=== PATIENT | female | born 1995 | race African-American/Black ===

== ENCOUNTER 2020-06-02 01:01 | Emergency (ER) | payer MEDICAID ==
[~2020-06-02] VITALS: Ht 165.1 cm; Wt 69.0 kg
[2020-06-02 01:03] VITALS: BP 136/72
[2020-06-02] MEDS ORDERED: ACETAMINOPHEN 325MG TABLET PO ONE (01:30)
[2020-06-02] MEDS ORDERED: LIDOCAINE HCL/PF 1% 10 MG/ML 5ML VIAL IJ ONE (01:30)
[2020-06-02] MEDS ORDERED: BACITRACIN ZINC OINT UDPKT TOP ONE (01:30)
[2020-06-02] MEDS ORDERED: TETANUS, DIPHTHERIA, PERTUSSIS VAC/PF 0.5ML (>7YR OLD) IM ONE (01:30)
== END 2020-06-02 04:05 | disposition home or self-care (01) ==
LOC: ER 01:01
DX: O26.892 Other specified pregnancy related conditions, second trimester (principal); S01.112A Laceration without foreign body of left eyelid and periocular area, initial encounter; Z3A.21 21 weeks gestation of pregnancy; Y04.0XXA Assault by unarmed brawl or fight, initial encounter; Y93.89 Activity, other specified; Y92.89 Other specified places as the place of occurrence of the external cause; Y99.8 Other external cause status
CPT/HCPCS: 12013; 76815; 81025; 90471; 90715; 99284; J3490

== ENCOUNTER 2020-08-18 13:15 | Observation (INO) | payer BC, MEDICAID | END 2020-08-18 15:40 | disposition home or self-care (01) | LOC: 8 EST LDRP 13:15 | PROVIDERS: ADMIT Obstetrics & Gynecology; ATTEND Obstetrics & Gynecology | DX: O62.9 Abnormality of forces of labor, unspecified (principal); Z3A.34 34 weeks gestation of pregnancy | CPT/HCPCS: 59025; 76805; 76818; G0378; 99281 ==

== ENCOUNTER 2020-09-02 10:48 | Observation (INO) | payer MEDICAID ==
[~2020-09-02] VITALS: Ht 160 cm; Wt 113.4 kg
== END 2020-09-02 14:00 | disposition home or self-care (01) ==
LOC: 8 EST LDRP 10:48
PROVIDERS: ADMIT Obstetrics & Gynecology; ATTEND Obstetrics & Gynecology
DX: O46.93 Antepartum hemorrhage, unspecified, third trimester (principal); O34.63 Maternal care for abnormality of vagina, third trimester; Z3A.36 36 weeks gestation of pregnancy
CPT/HCPCS: 59025; 76805; 76817; 76818; G0378; 99281

== ENCOUNTER 2020-09-06 17:54 | Emergency (ER) | payer MEDICAID ==
[~2020-09-06] VITALS: Ht 167.6 cm; Wt 90.0 kg
[2020-09-06 18:31] VITALS: BP 107/54
[2020-09-06] MEDS ORDERED: ACETAMINOPHEN 500MG TABLET PO ONE (18:45)
[2020-09-06 19:28] LABS: CLARITY URINE CLEAR (CLEAR); COLOR URINE YELLOW (YELLOW); KETONES URINE NEGATIVE (NEGATIVE); LEUKOCYTE ESTERASE URINE 2+ (NEGATIVE); NITRITE URINE NEGATIVE (NEGATIVE); OCCULT BLOOD URINE NEGATIVE (NEGATIVE); PH URINE 6.5 (4.5-8.0); PROTEIN URINE TRACE (NEGATIVE)
[2020-09-09 04:10] LABS: NEISSERIA GONORRHOEAE NAA Negative (Negative)
== END 2020-09-06 21:00 | disposition home or self-care (01) ==
LOC: ER 17:54
DX: S09.8XXA Other specified injuries of head, initial encounter (principal); Y08.89XA Assault by other specified means, initial encounter; Y93.89 Activity, other specified; Y92.89 Other specified places as the place of occurrence of the external cause; Y99.8 Other external cause status; N89.8 Other specified noninflammatory disorders of vagina; J45.909 Unspecified asthma, uncomplicated
CPT/HCPCS: 76815; 81003; 87210; 87491; 87591; 99284

== ENCOUNTER 2020-09-16 10:24 | Observation (INO) | payer MEDICAID ==
[2020-09-16] MEDS ORDERED: PNV1TABL76 MT (12:08)
== END 2020-09-16 12:30 | disposition home or self-care (01) ==
LOC: 8 EST LDRP 10:24
PROVIDERS: ADMIT Obstetrics & Gynecology; ATTEND Obstetrics & Gynecology
DX: O42.92 Full-term premature rupture of membranes, unspecified as to length of time between rupture and onset of labor (principal); Z20.822 Contact with and (suspected) exposure to COVID-19; Z3A.38 38 weeks gestation of pregnancy
CPT/HCPCS: 59025; 76815; 76818; 87426; G0378; 99281

== ENCOUNTER 2020-09-22 06:03 | Inpatient (IN) | payer MEDICAID ==
[~2020-09-22] VITALS: Ht 162.6 cm; Wt 108.0 kg
[~2020-09-22 06:03] MED LIST: PNV1TABL76 MT
[2020-09-22] MEDS ORDERED: NALOXONE HCL 0.4 MG/ML 1ML VIAL IM PRN (06:45)
[2020-09-22] MEDS ORDERED: CARBOPROST TROMETHAMINE 250 MCG/ML AMPUL IM PRN (06:45)
[2020-09-22] MEDS ORDERED: METHYLERGONOVINE MALEATE 0.2 MG/ML IM PRN (06:45)
[2020-09-22] MEDS: LACTATED RINGERS 1,000 ML IV SCH ×2 (07:22→08:41)
[2020-09-22 07:25] LABS: BASOPHILS % 0.3 % (0.0-2.0); EOSINOPHILS % 0.7 % (0.0-5.0); HEMATOCRIT. 35.1 % (36.0-48.0); HEMOGLOBIN. 11.2 g/dL (12.0-16.0); LYMPHOCYTES % 12.6 % (20.0-50.0); MEAN CORPUSCULAR HEMOGLOBIN 24.9 pg (28.0-32.0); MEAN CORPUSCULAR VOLUME 77.8 fL (81.0-99.0); MONOCYTES % 4.6 % (2.0-8.0); NEUTROPHILS % 81.8 % (40.0-76.0); PLATELET 220 x1000/uL (130-400); RED BLOOD CELL COUNT 4.51 mill/uL (4.2-5.4); RED CELL DISTRIBUTION WIDTH 13.7 % (11.6-14.6)
[2020-09-22] MEDS ORDERED: CITRIC ACID/SODIUM CITRATE SOLN 30ML UDC PO NR (07:30)
[2020-09-22 07:34] LABS: CLARITY URINE CLOUDY (CLEAR); COLOR URINE YELLOW (YELLOW); KETONES URINE NEGATIVE (NEGATIVE); LEUKOCYTE ESTERASE URINE 3+ (NEGATIVE); NITRITE URINE NEGATIVE (NEGATIVE); OCCULT BLOOD URINE TRACE (NEGATIVE); PROTEIN URINE 1+ (NEGATIVE); SPECIFIC GRAVITY URINE 1.028 (1.005-1.030)
[2020-09-22] MEDS ORDERED: PHENYLEPHRINE HCL 10 MG/ML 1ML (IV VIAL) IV ONE (07:36)
[2020-09-22] MEDS ORDERED: OXYTOCIN 10 UNITS/ML 1ML ONE (07:36)
[2020-09-22] MEDS ORDERED: CEFAZOLIN SODIUM 1000MG/VIAL ONE (07:36)
[2020-09-22] MEDS ORDERED: EPHEDRINE SULFATE 50MG/ML VIAL ONE (07:36)
[2020-09-22] MEDS ORDERED: GLYCOPYRROLATE 0.2 MG/ML 2ML VIAL ONE (07:36)
[2020-09-22] MEDS ORDERED: MORPHINE SULFATE/PF 1MG/ML 10ML AMP ONE (07:36)
[2020-09-22] MEDS ORDERED: FENTANYL CITRATE/PF 50MCG/ML 2ML VIAL ONE (07:36)
[2020-09-22] MEDS ORDERED: ONDANSETRON HCL 4MG/2ML INJ ONE (07:36)
[2020-09-22 08:04] LABS: HEPATITIS B SURFACE ANTIGEN NEGATIVE
[2020-09-22 08:20] LABS: *AMPHETAMINES SCREEN URINE NEGATIVE (NEGATIVE); *BARBITURATES SCREEN URINE NEGATIVE (NEGATIVE); *COCAINE SCREEN URINE NEGATIVE (NEGATIVE)
[2020-09-22 08:21] LABS: *BENZODIAZEPINES SCREEN URINE NEGATIVE (NEGATIVE); CANNABINOID URINE SCREEN NEGATIVE (NEGATIVE); METHADONE URINE SCREEN NEGATIVE (NEGATIVE); OPIATES URINE SCREEN NEGATIVE (NEGATIVE); PHENCYCLIDINE URINE SCREEN NEGATIVE (NEGATIVE)
[2020-09-22 08:41] LABS: PARTIAL THROMBOPLASTIN TIME 32.2 sec (23.4-31.0); PROTHROMBIN TIME 10.3 sec (9.6-11.0)
[2020-09-22] MEDS ORDERED: DIPHENHYDRAMINE 50MG/ML VIAL ONE (12:25)
[2020-09-22] MEDS ORDERED: KETOROLAC 60MG/2ML VIAL IM ONE (12:26)
[2020-09-22] MEDS ORDERED: BUTORPHANOL TARTRATE 2 MG/ML VIAL IV PRN (12:45)
[2020-09-22] MEDS ORDERED: NALOXONE HCL 0.4 MG/ML 1ML VIAL IV PRN (12:45)
[2020-09-22] MEDS: DEXT 5%/LR + PITOCIN 20UNITS/L 1,000 ML IV SCH (13:44)
[2020-09-22] MEDS: DIPHENHYDRAMINE 50MG/ML VIAL IV PRN (14:13)
[2020-09-22 15:30] VITALS: BP_SYST 103; BP_SYST 120; BP_DIAS 51; BP_DIAS 53
[2020-09-22] MEDS ORDERED: IBUPROFEN 400MG TABLET PO PRN (15:30)
[2020-09-22] MEDS ORDERED: DEXT 5%/LR + PITOCIN 20UNITS/L 1,000 ML IV SCH (15:30)
[2020-09-22] MEDS ORDERED: HYDROCODONE/ACETAMINOPHEN 5/325MG TABLET PO PRN (15:30)
[2020-09-22 16:00] VITALS: BP 107/53
[2020-09-22 17:09] VITALS: BP 104/51
[2020-09-22] MEDS: KETOROLAC 30MG/ML VIAL IV SCH (22:24)
[2020-09-23 00:30] VITALS: BP 98/54
[2020-09-23] MEDS: DEXT 5%/LR + PITOCIN 20UNITS/L 1,000 ML IV SCH (02:03)
[2020-09-23] MEDS ORDERED: KETOROLAC 30MG/ML VIAL IV SCH (03:30)
[2020-09-23] MEDS: DIPHENHYDRAMINE 50MG/ML VIAL IV PRN (03:31)
[2020-09-23 04:00] VITALS: BP 94/51
[2020-09-23] MEDS: KETOROLAC 30MG/ML VIAL IV SCH (04:29)
[2020-09-23 07:25] LABS: BASOPHILS % 0.2 % (0.0-2.0); EOSINOPHILS % 0.7 % (0.0-5.0); HEMATOCRIT. 32.7 % (36.0-48.0); HEMOGLOBIN. 10.5 g/dL (12.0-16.0); LYMPHOCYTES % 8.8 % (20.0-50.0); MEAN CORPUSCULAR HEMOGLOBIN 25.3 pg (28.0-32.0); MEAN CORPUSCULAR VOLUME 78.4 fL (81.0-99.0); MEAN PLATELET VOLUME 8.1 fl (7.4-10.4); MONOCYTES % 5.4 % (2.0-8.0); NEUTROPHILS % 84.9 % (40.0-76.0); PLATELET 208 x1000/uL (130-400); RED BLOOD CELL COUNT 4.17 mill/uL (4.2-5.4); RED CELL DISTRIBUTION WIDTH 13.6 % (11.6-14.6)
[2020-09-23 08:18] VITALS: BP 94/45
[2020-09-23] MEDS ORDERED: MEASLES,MUMPS&RUBELLA VACCINE 1 VIAL SUBCUT ONE (08:30)
[2020-09-23] MEDS ORDERED: INFLUENZA VACCINE 05/PF 0.5 ML VIAL IM ONE (09:00)
[2020-09-23] MEDS ORDERED: TETANUS, DIPHTHERIA, PERTUSSIS VAC/PF 0.5ML (>7YR OLD) IM ONE (09:00)
[2020-09-23] MEDS: ACETAMINOPHEN WITH CODEINE 300/30MG TABLET PO PRN ×2 (09:20→17:28)
[2020-09-23] MEDS: LACTATED RINGERS 1,000 ML IV SCH (10:38)
[2020-09-23 14:22] VITALS: BP 95/47
[2020-09-23 22:00] VITALS: BP 99/57
[2020-09-24] VITALS: BP 94/57
[2020-09-24] MEDS: ACETAMINOPHEN WITH CODEINE 300/30MG TABLET PO PRN ×4 (00:16→19:10)
[2020-09-24 05:42] VITALS: BP 115/64
[2020-09-24 10:00] VITALS: BP 110/60
[2020-09-24 14:00] VITALS: BP 112/66
[2020-09-24 20:00] VITALS: BP 106/60
[2020-09-25 04:00] VITALS: BP 107/72
[2020-09-25 08:00] VITALS: BP 117/52
[2020-09-25] MEDS ORDERED: IBUP-2030 MT (08:32)
[2020-09-25] MEDS: ACETAMINOPHEN WITH CODEINE 300/30MG TABLET PO PRN (08:53)
[2020-09-25 16:00] VITALS: BP 115/62
== END 2020-09-25 18:55 | disposition home or self-care (01) | DRG 540 ==
LOC: OBSVTOIN 06:03 → 8 EST LDRP 06:03 → 8EST 15:04
PROVIDERS: ADMIT Obstetrics & Gynecology; ATTEND Obstetrics & Gynecology
PROC: 10D00Z1 Extraction of Products of Conception, Low, Open Approach (ICD-10-PCS; principal; 2020-09-23)
DX: O34.211 Maternal care for low transverse scar from previous cesarean delivery (principal); O77.0 Labor and delivery complicated by meconium in amniotic fluid; Z37.0 Single live birth; Z3A.39 39 weeks gestation of pregnancy
CPT/HCPCS: 36415; 80305; 81003; 85025; 86592; 86703; 86762; 86850; 86900; 86920; 87340; 88307; 90686; 90707; 90715; 99281; J0690; J1200; J1885; J2274; J2370; J2405; J2590; J3010; J3490; J7120; A4315

== ENCOUNTER 2022-06-11 18:49 | Inpatient (IN) | payer BC ==
[~2022-06-11] VITALS: Ht 165.1 cm; Wt 122.0 kg
[~2022-06-11 18:49] MED LIST changes: +IBUP-2030 MT
[2022-06-11] MEDS ORDERED: METHYLERGONOVINE MALEATE 0.2 MG/ML IM PRN (20:15)
[2022-06-11] MEDS ORDERED: NALOXONE HCL 0.4 MG/ML 1ML VIAL IM PRN (20:15)
[2022-06-11] MEDS ORDERED: CARBOPROST TROMETHAMINE 250 MCG/ML AMPUL IM PRN (20:15)
[2022-06-11] MEDS ORDERED: MISOPROSTOL 100MCG TABLET VG SCH (20:15)
[2022-06-11] MEDS ORDERED: RHO(D) IMMUNE GLOBULIN 300 MCG/SYR IM ONE (20:15)
[2022-06-11] MEDS ORDERED: CITRIC ACID/SODIUM CITRATE SOLN 30ML UDC PO NR (20:30)
[2022-06-11] MEDS ORDERED: EPHEDRINE SULFATE 50MG/ML VIAL ONE (20:44)
[2022-06-11] MEDS ORDERED: OXYTOCIN 10 UNITS/ML 1ML ONE (20:44)
[2022-06-11] MEDS ORDERED: CEFAZOLIN SODIUM 1000MG/VIAL ONE (20:44)
[2022-06-11] MEDS ORDERED: ONDANSETRON HCL 4MG/2ML INJ ONE (20:44)
[2022-06-11] MEDS ORDERED: MORPHINE SULFATE/PF 1MG/ML 10ML AMP ONE (20:45)
[2022-06-11] MEDS ORDERED: FENTANYL CITRATE/PF 50MCG/ML 2ML VIAL ONE (20:45)
[2022-06-11 21:12] LABS: BASOPHILS % 0.2 % (0.0-2.0); EOSINOPHILS % 0.9 % (0.0-5.0); HEMOGLOBIN. 11.5 g/dL (12.0-16.0); LYMPHOCYTES % 15.8 % (20.0-50.0); MEAN CORPUSCULAR HEMOGLOBIN 24.4 pg (28.0-32.0); MEAN CORPUSCULAR VOLUME 76.5 fL (81.0-99.0); MEAN PLATELET VOLUME 8.6 fl (7.4-10.4); MONOCYTES % 5.5 % (2.0-8.0); NEUTROPHILS % 77.6 % (40.0-76.0); PLATELET 294 x1000/uL (130-400); RED BLOOD CELL COUNT 4.71 mill/uL (4.2-5.4); RED CELL DISTRIBUTION WIDTH 14.3 % (11.6-14.6)
[2022-06-11 21:23] LABS: PARTIAL THROMBOPLASTIN TIME 31.3 sec (23.4-31.0); PROTHROMBIN TIME 10.3 sec (9.6-11.0)
[2022-06-11 21:23] LABS: CLARITY URINE CLOUDY (CLEAR); COLOR URINE YELLOW (YELLOW); KETONES URINE NEGATIVE (NEGATIVE); LEUKOCYTE ESTERASE URINE NEGATIVE (NEGATIVE); NITRITE URINE NEGATIVE (NEGATIVE); OCCULT BLOOD URINE NEGATIVE (NEGATIVE); PROTEIN URINE 1+ (NEGATIVE); SPECIFIC GRAVITY URINE 1.029 (1.005-1.030)
[2022-06-11] MEDS: LACTATED RINGERS 1,000 ML IV SCH ×2 (21:34→21:35)
[2022-06-11 21:38] LABS: *AMPHETAMINES SCREEN URINE NEGATIVE (NEGATIVE); *BARBITURATES SCREEN URINE NEGATIVE (NEGATIVE); *BENZODIAZEPINES SCREEN URINE NEGATIVE (NEGATIVE); *COCAINE SCREEN URINE NEGATIVE (NEGATIVE); CANNABINOID URINE SCREEN NEGATIVE (NEGATIVE); METHADONE URINE SCREEN NEGATIVE (NEGATIVE); OPIATES URINE SCREEN NEGATIVE (NEGATIVE); PHENCYCLIDINE URINE SCREEN NEGATIVE (NEGATIVE)
[2022-06-11 22:11] LABS: HEPATITIS B SURFACE ANTIGEN NEGATIVE
[2022-06-11] MEDS ORDERED: DIPHENHYDRAMINE 50MG/ML VIAL ONE (22:11)
[2022-06-11] MEDS ORDERED: KETOROLAC 60MG/2ML VIAL IM ONE (22:30)
[2022-06-11] MEDS ORDERED: DIPHENHYDRAMINE 50MG/ML VIAL IV PRN (23:00)
[2022-06-11] MEDS ORDERED: BUTORPHANOL TARTRATE 2 MG/ML VIAL IV PRN (23:00)
[2022-06-11] MEDS ORDERED: NALOXONE HCL 0.4 MG/ML 1ML VIAL IV PRN (23:00)
[2022-06-11] MEDS ORDERED: RHO(D) IMMUNE GLOBULIN 300 MCG/SYR IM PRN (23:45)
[2022-06-11] MEDS ORDERED: ONDANSETRON HCL 4MG/2ML INJ IV PRN (23:45)
[2022-06-11] MEDS ORDERED: LANOLIN OINT 7GM TUBE TOP PRN (23:45)
[2022-06-11] MEDS ORDERED: BISACODYL 10MG SUPP PR PRN (23:45)
[2022-06-11] MEDS ORDERED: IBUPROFEN 400MG TABLET PO PRN (23:45)
[2022-06-11] MEDS ORDERED: DIPHENHYDRAMINE 25MG CAPSULE PO PRN (23:45)
[2022-06-11] MEDS ORDERED: OXYTOCIN 30 UNITS/500ML NS PMX 500 ML IV SCH (23:45)
[2022-06-11] MEDS ORDERED: HYDROCODONE/ACETAMINOPHEN 5/325MG TABLET PO PRN ×2 (23:45)
[2022-06-12] MEDS: OXYTOCIN 30 UNITS/500ML NS PMX 500 ML IV SCH ×4 (00:18→04:56)
[2022-06-12] MEDS ORDERED: FERR325T6 PO (00:51)
[2022-06-12] MEDS ORDERED: PNV1TABL29 PO (00:51)
[2022-06-12 02:30] VITALS: BP 95/56
[2022-06-12 03:30] VITALS: BP 98/58
[2022-06-12] MEDS: KETOROLAC 30MG/ML VIAL IV SCH ×3 (04:56→17:28)
[2022-06-12 06:36] LABS: BASOPHILS % 0.2 % (0.0-2.0); EOSINOPHILS % 0.4 % (0.0-5.0); HEMATOCRIT. 33.6 % (36.0-48.0); HEMOGLOBIN. 10.9 g/dL (12.0-16.0); LYMPHOCYTES % 9.4 % (20.0-50.0); MEAN CORPUSCULAR HEMOGLOBIN 24.7 pg (28.0-32.0); MEAN CORPUSCULAR VOLUME 76.3 fL (81.0-99.0); MEAN PLATELET VOLUME 8.1 fl (7.4-10.4); MONOCYTES % 4.8 % (2.0-8.0); NEUTROPHILS % 85.2 % (40.0-76.0); PLATELET 252 x1000/uL (130-400)
[2022-06-12 07:40] VITALS: BP 95/42
[2022-06-12] MEDS: LACTATED RINGERS 1,000 ML IV SCH ×2 (09:30→17:18)
[2022-06-12 16:55] VITALS: BP 106/56
[2022-06-12 20:00] VITALS: BP 112/59
[2022-06-12] MEDS: DOCUSATE SODIUM 100MG CAPSULE PO SCH (21:06)
[2022-06-13 03:30] VITALS: BP 108/60
[2022-06-13 08:00] VITALS: BP 101/58
[2022-06-13] MEDS: PRENATAL VIT/FE FUMARATE/FA TABLET PO SCH (08:19)
[2022-06-13] MEDS ORDERED: NALOXONE HCL 0.4MG/ML VIAL IV PRN (08:30)
[2022-06-13] MEDS ORDERED: KETOROLAC 30MG/ML VIAL IV NR (09:00)
[2022-06-13] MEDS: IBUPROFEN 800MG TABLET PO SCH ×2 (10:00→17:34)
[2022-06-13 15:59] VITALS: BP 97/65
[2022-06-13 20:00] VITALS: BP 104/55
[2022-06-13] MEDS: OXYCODONE HCL/ACETAMINOPHEN 5/325MG TABLET PO PRN (20:43)
[2022-06-13] MEDS: DOCUSATE SODIUM 100MG CAPSULE PO SCH (20:43)
[2022-06-14] MEDS: IBUPROFEN 800MG TABLET PO SCH ×2 (01:36→12:11)
[2022-06-14 04:00] VITALS: BP 106/64
[2022-06-14] MEDS: OXYCODONE HCL/ACETAMINOPHEN 5/325MG TABLET PO PRN (04:41)
[2022-06-14 07:58] VITALS: BP 105/46
[2022-06-14] MEDS: PRENATAL VIT/FE FUMARATE/FA TABLET PO SCH (08:25)
== END 2022-06-14 15:30 | disposition home or self-care (01) | DRG 540 ==
LOC: 8 EST LDRP 18:49 → 8EST 06-12 02:13
PROVIDERS: ADMIT Obstetrics & Gynecology; ATTEND Obstetrics & Gynecology
PROC: 10D00Z1 Extraction of Products of Conception, Low, Open Approach (ICD-10-PCS; principal; 2022-06-11)
DX: O34.211 Maternal care for low transverse scar from previous cesarean delivery (principal); O99.02 Anemia complicating childbirth; Z20.822 Contact with and (suspected) exposure to COVID-19; Z3A.38 38 weeks gestation of pregnancy; Z37.0 Single live birth
CPT/HCPCS: 36415; 76805; 80305; 81003; 85025; 86592; 86703; 86762; 86850; 86900; 86920; 87340; 87426; 88307; 99281; G0378; J0595; J0690; J1200; J1885; J2274; J2405; J3010; J3490; A4315; J2590